=== PATIENT | male | born 1945 | race Caucasian/White ===

== ENCOUNTER → 2023-11-23 08:06 | Outpatient (REF) | payer OTHER, SELFPAY | LOC: DHCBC MAIN 08:06 | PROVIDERS: ATTENDING PHYSICIAN Nurse Practitioner; FAMILY PHYSICIAN Family Medicine | DX: I50.22 Chronic systolic (congestive) heart failure (principal); I25.10 Atherosclerotic heart disease of native coronary artery without angina pectoris | CPT/HCPCS: 93306 ==

== ENCOUNTER 2023-12-21 12:25 | Day surgery (SDC) | payer OTHER, SELFPAY ==
[2023-12-14 13:28] VITALS: BMI 37.3
[2023-12-14 14:24] LABS: ALT (SGPT) 52 U/L (0-50); AST (SGOT) 57 U/L (17-59); Albumin 3.8 g/dl (3.5-5.0); Alkaline Phosphatase 84 U/L (38-126); Blood Urea Nitrogen 32 mg/dl (9-20); Calcium 9.2 mg/dl (8.4-10.2); Carbon Dioxide 29 mmol/L (22-30); Chloride 103 mmol/L (98-107); Estimated Creatinine Clearance 42 ml/min; Glucose 107 mg/dl (70-99); Potassium 4.3 mmol/L (3.5-5.1); Sodium 140 mmol/L (135-145); Total Bilirubin 0.7 mg/dl (0.2-1.3); Total Protein 6.3 g/dl (6.3-8.2); eGFR 43.83
[2023-12-21] VITALS (8 sets, daily range): BP systolic 130–150; BP diastolic 65–101; BMI 35.4
--- NOTE | 2023-12-21 15:54 | ITS.CL.CATH ---
[facility] [employer] [facility] - Catheterization
Cardiac Catheterization
Procedure Report:
CARDIAC CATHETERIZATION REPORT
Date of Procedure: 12/21/2023
Referring: Elin Bravo M.D.
INDICATION: Worsening cardiomyopathy.
PROCEDURE:
1. Left heart catheterization.
2. Coronary angiography.
ACCESS:
6 [place] right radial artery.
CATHETERS:
1. 5 [place] JR4.
2. 5 [place] JL 3.5.
HEMODYNAMIC DATA
Weight (kg): 101.6
AO (s/d/x, mmHg): 131/66/91
LV (s/x mmHg): 135/35 (A wave to 46)
LEFT VENTRICULOGRAPHY: Not performed.
CORONARY ANGIOGRAPHY
Dominance: Right.
Left Main: Normal size, trifurcating vessel. There is no coronary artery disease.
LAD: Large size vessel, giving rise to 1 significant diagonal before wrapping around the apex and supplying the distal inferior septum. Patent stent is observed in the proximal vessel with no evidence of in-stent restenosis.
Ramus: Normal size vessel supplying much of the lateral and anterolateral wall. There is no coronary artery disease.
Circumflex: Large size, nondominant vessel giving rise to 2 obtuse marginals before terminating as a left posterolateral branch. There is a 20% lesion in the proximal circumflex. There are luminal irregularities throughout the mid remainder of
the vessel.
RCA: Normal size, dominant vessel. The vessel is subtotally, chronically occluded in its proximal margin with ELY I flow.
INTERVENTION(S)
None.
Closure Device: Vascular band.
Radiation (mGy): 343.15
DAP (cm2.Gy):
Fluoroscopy time (minutes): 2.0
Sedation time (minutes): 13
CONCLUSIONS
1. 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
circumflex, and a patent stent in the proximal LAD with no evidence of in-stent restenosis.
2. Severely elevated filling pressures (LVEDP = 35 mmHg at 101.6 kg) with evidence of diastolic dysfunction (A wave to 46 mmHg).
RECOMMENDATIONS:
1. Expectant management after cardiac catheterization via right radial approach.
2. Limited weight bearing on the right wrist for one week.
3. Increase furosemide to 80 mg daily.
4. BMP in 1 week to monitor renal function and potassium levels.
5. Guideline directed medical therapy as hemodynamics will tolerate.
6. Stable for outpatient cardiology follow-up.
Copy to: Elin Bravo M.D., Louis Molina D.Iesha.
Gage Frazier DO, FACC, FACP
== END 2023-12-21 18:45 | disposition home or self-care (01) ==
LOC: CATH 12:25
PROVIDERS: ATTENDING PHYSICIAN Internal Medicine Cardiovascular Disease; FAMILY PHYSICIAN Family Medicine; OTHER PHYSICIAN Internal Medicine Cardiovascular Disease
DX: I25.10 Atherosclerotic heart disease of native coronary artery without angina pectoris (principal); I25.82 Chronic total occlusion of coronary artery; I25.2 Old myocardial infarction; Z95.5 Presence of coronary angioplasty implant and graft; I13.0 Hypertensive heart and chronic kidney disease with heart failure and stage 1 through stage 4 chronic kidney disease, or unspecified chronic kidney disease; N18.30 Chronic kidney disease, stage 3 unspecified; I50.22 Chronic systolic (congestive) heart failure; E78.5 Hyperlipidemia, unspecified; E03.9 Hypothyroidism, unspecified; N40.0 Benign prostatic hyperplasia without lower urinary tract symptoms; F17.200 Nicotine dependence, unspecified, uncomplicated; E66.9 Obesity, unspecified; Z68.37 Body mass index [BMI] 37.0-37.9, adult; Z79.82 Long term (current) use of aspirin; Z79.84 Long term (current) use of oral hypoglycemic drugs
CPT/HCPCS: 36415; 80053; 93005; 93458; C1894; Q9967

== ENCOUNTER → 2024-04-09 10:35 | Outpatient (REF) | payer OTHER, SELFPAY | LOC: RCS 10:35 | PROVIDERS: ATTENDING PHYSICIAN Nurse Practitioner; FAMILY PHYSICIAN Family Medicine | DX: I25.118 Atherosclerotic heart disease of native coronary artery with other forms of angina pectoris (principal); I50.20 Unspecified systolic (congestive) heart failure | CPT/HCPCS: 93306; Q9950 ==

== ENCOUNTER 2024-09-03 13:49 | Outpatient (RCR) | payer OTHER, SELFPAY | END 2024-09-03 23:59 | disposition home or self-care (01) | LOC: RPT 13:49 | PROVIDERS: ATTENDING PHYSICIAN Internal Medicine Cardiovascular Disease; FAMILY PHYSICIAN Family Medicine | DX: I89.0 Lymphedema, not elsewhere classified (principal); Z73.6 Limitation of activities due to disability; R26.2 Difficulty in walking, not elsewhere classified | CPT/HCPCS: 97162; 97530; 97760; 97763 ==

== ENCOUNTER → 2025-04-16 10:07 | Outpatient (REF) | payer OTHER, SELFPAY | LOC: RCS 10:07 | PROVIDERS: ATTENDING PHYSICIAN Nurse Practitioner; FAMILY PHYSICIAN Family Medicine | DX: I50.20 Unspecified systolic (congestive) heart failure (principal) | CPT/HCPCS: 93306; Q9950 ==